=== PATIENT | female | born 1980 | race Caucasian/White ===

== ENCOUNTER 2016-08-21 12:32 | Emergency (ER) ==
[2016-08-21 12:43] VITALS: BP 140/91
--- NOTE | 2016-08-21 14:09 | PROVIDER DOCUMENTATION ---
HPI-Musculoskeletal Pain/Inj - GENERAL Chief Complaint: Back Pain Stated Complaint: UTI SX Time Seen by Provider: 08/21/16 13:33 Source: patient - HX OF PRESENT ILLNESS-MUSKULOSKELTAL Nature of Presenting Problem: 36 y/o WF c/o L low back pain x 1 day. Pt states that she has not been doing any heavy lifting, strenuous activity. States started yesterday and worse today. Throbbing pain. Denies inability to ambulate, numbness/tingling, bowel/ bladder dysfunction, saddle anesthesia, hematuria, hx of kidney stones, N/V/D/C , abd pain. Reports urinary frequency. LMP March 2016; unusual for her. States cough x 3 weeks, not productive, and will not go away with OTC medications. Review of Systems - Adult - REVIEW OF SYSTEMS - ADULT Constitutional: reports: no symptoms reported. denies: chills, fever Eyes: reports: no symptoms reported. denies: blurred vision, double vision Ears, Nose, Mouth & Throat: reports: no symptoms reported. denies: ear pain, throat pain Cardiovascular: reports: no symptoms reported. denies: chest pain, palpitations Respiratory: reports: see HPI, cough. denies: dyspnea on exertion, shortness of breath Gastrointestinal: reports: no symptoms reported. denies: abdominal pain, diarrhea, nausea, vomiting Genitourinary: reports: see HPI, frequency. denies: dysuria, discharge, flank pain, hematuria Musculoskeletal: reports: see HPI, back pain. denies: joint pain, joint swelling Integumentary: reports: no symptoms reported. denies: nail changes, rash Neurological: reports: no symptoms reported. denies: numbness, paresthesia Psychiatric: reports: no symptoms reported Endocrine: reports: no symptoms reported. denies: cold intolerance, heat intolerance Hematologic/Lymphatic: reports: no symptoms reported. denies: easy bruising, prolonged bleeding Allergic/Immunologic: reports: no symptoms reported All Other Systems: Reviewed and Negative Past History - Adult - PAST MEDICAL HISTORY-ADULT Review of Records: reports: Nursing Assessment Review, Medications Reviewed Major Childhood Illnesses: reports: denies history Cardiovascular: reports: denies history Respiratory: reports: denies history Gastrointestinal: reports: denies history Obstetrical/Gynecological: reports: denies history Genitourinary: reports: denies history Musculoskeletal: reports: denies history Neurological: reports: denies history Endocrine/Immune: reports: denies history Other Conditions: reports: denies history - PRIOR SURGERIES/PROCEDURES Surgical/Procedure History: reports: cholecystectomy - IMMUNIZATION STATUS Childhood Immunizations: See Nurse Assessment Flu Vaccine: See Nurse Assessment - FAMILY HISTORY Family History: reviewed, not pertinent - SOCIAL HISTORY Smoking: denies Physical Exam-Injury Related - Physical Exam-Injury Related Initial Vital Signs Reviewed: Yes General Appearance: alert, mild distress Eyes: pink conjunctivae Head, Ears, Nose, Mouth & Throat: normocephalic/atraumatic, moist mucous membranes Neck: supple, normal inspection Respiratory: lungs clear, normal breath sounds. negative: crackles, rales, rhonchi, stridor, wheezing Cardiovascular: regular rate, rhythm Abdominal Exam: normal bowel sounds, non tender, soft. negative: distended, guarding, rigid Back Exam: normal inspection, no CVA tenderness, decreased range of motion, other (TTP L low back with + straight leg raise) Extremity: normal gait, normal inspection. negative: abnormal NV exam Integumentary: normal color, warm/dry, blanching Neurologic: negative: aphasia Psych/Mental Status: normal mood/affect, normal thought content, normal thought process, oriented x 3 Progress - XRAY 1 XRAY Study: Chest Impression: See EMR Report (No PNA, per Dr. Torre) Departure - Departure Time of Disposition Order: 15:26 DIAGNOSIS: Cough UTI (urinary tract infection) Qualifiers: Urinary tract infection type: acute cystitis Hematuria presence: with hematuria Qualified Code(s): N30.01 - Acute cystitis with hematuria Disposition: HOME 01 Certified Medical Emergency: Emergent Condition: Stable Additional Instructions: Take medications as directed. Follow up with PCP as needed for further management. ED Follow Up Instructions: You have been treated by a care provider in the Emergency Department. These instructions are being provided to you so you can have an understanding of how to care for yourself upon discharge. Upon discharge from the Emergency Department, you are responsible for making arrangements for follow-up care by a physician of your choice. Take all prescribed medications as directed. Return to the Emergency Department immediately for any new or worsening symptoms. You may call the Physician Referral phone number at [phone] to obtain a list of Physicians who are taking new patients. Prescriptions: Ciprofloxacin HCl [Cipro] 500 mg PO BID #14 tablet Meloxicam [Mobic] 7.5 mg PO DAILY #30 tablet Phenazopyridine HCl [Pyridium] 100 mg PO TID #6 tablet Methocarbamol [Robaxin] 500 mg PO BID #30 tablet Attestation - Physician/ CARLOS ALBERTO Attestation Patient care was provided by Advanced Practice Provider:: Yes Advanced Practice Provider:: Rebecca Cannon Advanced Practice Provider documentation review:: The Mid-level provider documentation, treatment plan and medical decision making was reviewed by the physician who agrees with all treatment and medical decision making by the MLP.
--- NOTE | 2016-08-21 14:34 | Diag Imaging Result Document ---
PROCEDURE NAME: CHEST-2 VIEWS - 08/21/2016 FRONTAL AND LATERAL CHEST, TWO VIEWS: COMPARISON: 08/16/2016. FINDINGS: The lungs are well expanded. The heart is not enlarged. The vessels are not distended. There are no infiltrates. No pleural effusions. No consolidation. IMPRESSION: No pneumonia.
[2016-08-21 15:04] LABS: URINE SOURCE CLEAN CATCH
[2016-08-21 15:13] LABS: BILIRUBIN URINE NEGATIVE (NEGATIVE); BLOOD URINE 1+ (NEGATIVE); CLARITY CLEAR (CLEAR); COLOR YELLOW; LEUKOCYTES URINE 2+ (NEGATIVE); NITRITE URINE NEGATIVE (NEGATIVE); PROTEIN URINE TRACE mg/dL (NEGATIVE); SP GRAVITY URINE 1.025; UROBILINOGEN URINE NORMAL
[2016-08-21 15:15] LABS: URINE CULTURE PL NEEDED? YES; URINE EPITHELIAL CELLS >10 /HPF (<10); URINE WBC 20-40 /HPF (<10)
== END 2016-08-21 15:42 | disposition home or self-care (01) ==
LOC: P.ED 12:32
DX: N30.01 Acute cystitis with hematuria (principal); M54.5 Low back pain; R05 Cough
CPT/HCPCS: 71020; 81001; 81025; 87088; 99283